=== PATIENT | female | born 1960 | race Caucasian/White ===

== ENCOUNTER 2020-12-06 14:24 | Emergency (ER) | payer OTHER, MEDICAID ==
[~2020-12-06] VITALS: Ht 170.2 cm; Wt 59.0 kg
[~2020-12-06 14:24] MED LIST: CYMBALTA30 MG PO; DESYREL50 MG PO; DIAZEPAM 10 MG10 M1 PO; ENDOCET 10-3251 EACH PO; FLOVENT HFA 1110 MCG INH; PANTOPRAZOLE SO40 M1 PO; PROMETHAZINE12.5 M1 PO; ROBAXIN 750 MG750 M1 PO; STOOL SOFTENER1 EAC2 PO
[2020-12-06 15:06] LABS: CALCIUM 8.9 mg/dL (8.5-10.1); CREATININE 1.4 mg/dL (0.6-1.3)
[2020-12-06 15:15] LABS: ABSOLUTE BASOPHILS 0.1 thou/uL (0.0-0.2); ABSOLUTE EOSINOPHILS 0.2 thou/uL (0.0-0.7); ABSOLUTE LYMPHOCYTES 2.2 thou/uL (0.8-5.3); ABSOLUTE MONOCYTES 0.8 thou/uL (0.0-1.2); ABSOLUTE NEUTROPHILS 7.5 thou/uL (1.6-8.1); BASOPHILS 1.2 %; EOSINOPHILS 2.3 %; HEMOGLOBIN 14.2 gm/dL (12.0-15.0); LYMPHOCYTES 20.2 %; MCH 30.7 pg (26.0-34.0); MCHC 33.7 g/dL (28.0-37.0); MCV 91.1 fL (80.0-100.0); MONOCYTES 7.1 %; NUCLEATED RBCS 0 /100WBC; PLATELET COUNT* 242 thou/uL (150-400); POLYS 69.2 %; RBC 4.61 mil/uL (4.20-5.00); RDW-CV 14.6 % (10.5-14.5); WBC 10.9 thou/uL (4.0-11.0)
[2020-12-06 15:16] LABS: ALBUMIN 3.3 g/dL (3.4-5.0); MAGNESIUM 1.8 mg/dL (1.8-2.4); TOTAL BILIRUBIN 0.2 mg/dL (<0.1-1.0)
--- NOTE | 2020-12-06 15:45 | EKG ---
[place] [address] ELECTROCARDIOGRAM REPORT Name: JONISAMIRA S Room: [facility]#: [id number] Admission: Attend Phys: Discharge: Date of : 60 Date of Service: 12/06/20 1425 Report #: [id number] THIS REPORT FOR: //name// [facility] ED Test Date: 2020-12-06 Test Time: 14:25:19 Pat Name: SAMIRA QUINONES Department: Room: Gender: Director Automotive: : 1960 Requested By: Ezra Odonnell Order Number: [id number] MD: Joe Herring Measurements Intervals [place] Rate: 101 P: 44 [place]: 155 QRS: 21 QRSD: 99 T: 46 QT: 346 QTc: 449 Interpretive Statements Sinus tachycardia Probable left atrial enlargement RSR' in V1 or V2, probably normal variant No previous ECG available for comparison Electronically Signed On 12-06-2020 15:44:35 CDT by Joe Herring [email or web address] <ELECTRONICALLY SIGNED> By: Joe Herring MD, [facility] 12/06/20 1544 1425 1425 Joe Herring MD, FAC /EPI
[2020-12-06 18:36] VITALS: BP 131/70
--- NOTE | 2020-12-07 12:17 | EKG ---
[place] [address] ELECTROCARDIOGRAM REPORT Name: JONI,SAMIRA Singer Room: [facility]#: [id number] Admission: 12/06/20 Attend Phys: Discharge: 12/06/20 Date of : 60 Date of Service: 12/06/20 1648 Report #: [id number] THIS REPORT FOR: //name// [facility] ED Test Date: 2020-12-06 Test Time: 16:48:34 Pat Name: SAMIRA QUINONES Department: Room: Gender: F Risk Management Professional: GRISELDA : 1960 Requested By: Ezra Odonnell Order Number: [id number] MD: Joe Herring Measurements Intervals [place] Rate: 77 P: 38 [place]: 150 QRS: 14 QRSD: 112 T: 27 QT: 413 QTc: 468 Interpretive Statements Sinus rhythm Probable left atrial enlargement Borderline intraventricular conduction delay RSR' in V1 or V2, probably normal variant Compared to ECG 12/06/2020 14:25:19 Sinus tachycardia no longer present Electronically Signed On 12-07-2020 12:16:54 CDT by Joe Herring [email or web address] <ELECTRONICALLY SIGNED> By: Joe Herring MD, FAC 12/07/20 1216 1648 1648 Joe Herring MD, [facility] /EPI
== END 2020-12-06 18:36 | disposition home or self-care (01) ==
LOC: M.ERS 14:24
PROVIDERS: Emergency Medicine Emergency Medical Services
DX: R07.89 Other chest pain (principal); R20.2 Paresthesia of skin; R00.2 Palpitations; R20.0 Anesthesia of skin; F41.9 Anxiety disorder, unspecified; K21.9 Gastro-esophageal reflux disease without esophagitis; J44.9 Chronic obstructive pulmonary disease, unspecified; F32.9 Major depressive disorder, single episode, unspecified; F17.210 Nicotine dependence, cigarettes, uncomplicated; Z96.641 Presence of right artificial hip joint; Z79.899 Other long term (current) drug therapy; Z88.5 Allergy status to narcotic agent; Z88.0 Allergy status to penicillin; Z88.8 Allergy status to other drugs, medicaments and biological substances